=== PATIENT | female | born 2005 | race Caucasian/White ===

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

== ENCOUNTER 2024-01-12 12:32 | Emergency (ER) | payer OTHER, SELFPAY ==
[2024-01-12 12:32] VITALS: BP 117/88; PULSE 88; RESP 16; TEMP 36.6; O2SAT 100
--- NOTE | 2024-01-12 13:06 | ED.GENADULT ---
HPI - General Adult General Chief complaint: Unspecified Stated complaint: work note Time Seen by Provider: 01/12/24 13:06 Source: patient and family Mode of arrival: ambulatory Limitations: no limitations History of Present Illness HPI narrative: this is a 18-year-old female that works for [employer] that had a work related injury causing pain in her left shoulder approximately 3 to 4 days ago currently her left shoulder is relieved of pain and symptoms have resolved has good range of motion no point tenderness no numbness or tingling no other injuries noted. Onset (ago): day(s) Location: upper extremity Radiation: non-radiation Severity: mild Related Data Home Medications Medication Instructions Recorded Confirmed No Home Medications 09/13/20 01/12/24 Allergies Allergy/AdvReac Type Severity Reaction Status Date / Time No Known Allergies Allergy Verified 01/12/24 12:56 Review of Systems Review of Systems: All systems reviewed & are unremarkable except as noted in HPI and below PMFSH Past Medical History Medical History Patient denies medical problems Exam Const: General: cooperative, healthy appearing, comfortable, no acute distress and well developed Neck: Neck: normal visual inspection, full ROM, no lymphadenopathy and no meningeal signs Chest: Chest palpation & inspection: normal inspection of the chest and normal palpation of entire chest wall Resp: Effort & Inspection: normal respiratory effort and able to speak in complete sentences Cardio: Jugular venous distension: no JVD Palpation: normal PMI Rate: regular rate Rhythm: regular rhythm Skin: General skin exam: normal color and no rashes or lesions noted Neuro: General: oriented to person, oriented to place, oriented to time and patient oriented x3 Extrem: General: normal to inspection, full ROM and capillary refill normal Course Course Emergency Course: Exam showed no acute abnormalities left shoulder discomfort an injury has resolved advised patient to go back to work and will give a note to that effect. Vital Signs Vital signs: Vital Signs Temperature 36.6 C 01/12/24 12:32 Pulse Rate 88 01/12/24 12:32 Respiratory Rate 16 01/12/24 12:32 Blood Pressure 117/88 01/12/24 12:32 Pulse Oximetry 100 01/12/24 12:32 Temperature 36.6 C 01/12/24 12:32 Pulse Rate 88 01/12/24 12:32 Respiratory Rate 16 01/12/24 12:32 Blood Pressure 117/88 01/12/24 12:32 Pulse Oximetry 100 01/12/24 12:32 Medical Decision Making Vital Signs Vital Signs: Vital Signs Temperature 36.6 C 01/12/24 12:32 Pulse Rate 88 01/12/24 12:32 Respiratory Rate 16 01/12/24 12:32 Blood Pressure 117/88 01/12/24 12:32 Pulse Oximetry 100 01/12/24 12:32 Temperature 36.6 C 01/12/24 12:32 Pulse Rate 88 01/12/24 12:32 Respiratory Rate 16 01/12/24 12:32 Blood Pressure 117/88 01/12/24 12:32 Pulse Oximetry 100 01/12/24 12:32 Critical Care Time Critical Care Time Critical Care Time: No Discharge Plan Discharge Clinical Impression: Work related injury, Left shoulder strain Patient Disposition: Home, Self-Care Condition: Stable Instructions: Antibiotic Form, Rotator Cuff Injury (ED) Additional Instructions: advised patient able to go back to work and for workman's comp related injury follow up with primary are with physicians at [facility] Prescriptions: No Action No Home Medications Follow-up/Referrals: Kelly,MD Nestor [Primary Care Provider] - Stand Alone Forms: Work/School Release IP Time of Disposition: 13:11
[2024-01-12 13:35] VITALS: BP 117/88; PULSE 88; RESP 16; TEMP 36.6; O2SAT 100
== END 2024-01-12 13:35 | disposition home or self-care (01) ==
LOC: CHSED 13:15
PROVIDERS: Emergency Provider Emergency Medicine; PCP Family Medicine
DX: S46.912A Strain of unspecified muscle, fascia and tendon at shoulder and upper arm level, left arm, initial encounter (principal); X58.XXXA Exposure to other specified factors, initial encounter; Y99.0 Civilian activity done for income or pay
CPT/HCPCS: 99281

== ENCOUNTER 2024-05-27 17:09 | Emergency (ER) | payer OTHER, SELFPAY ==
--- NOTE | ~2024-05-27 | XR_ITS ---
HISTORY: FALL COMPARISON: None TECHNIQUE: 3 views of the right ribs were performed along with a frontal view of the chest FINDINGS: No acute displaced fracture is appreciated. Bone mineralization is age-appropriate. The cardiothymic silhouette is unremarkable. The lungs are clear. IMPRESSION: No acute displaced right-sided rib fracture. The lungs are clear. Reviewed, dictated and finalized at location A.
[2024-05-27 17:09] VITALS: BP 130/89; PULSE 96; RESP 16; TEMP 36.2; O2SAT 97
--- NOTE | 2024-05-27 17:31 | ED.BACK ---
HPI - Back Pain/Injury General Chief Complaint: Back Pain/Injury Stated Complaint: BACK PAIN Time Seen by Provider: 05/27/24 17:25 Source: patient and family Mode of arrival: ambulatory Limitations: no limitations History of Present Illness HPI Narrative: 18 YEARS OLD WHITE FEMALE WAS WALKING INSIDE HER HOUSE SOMEHOW LOST HER BALANCE AND FELL BACKWARD LANDED ON HER BACK. SHE DENIES OTHER INJURIES. Related Data Home Medications ?Medication ?Instructions ?Recorded ?Confirmed ?Last Taken ?Type No Home Medications 09/13/20 01/12/24 Unknown History Allergies Allergy/AdvReac Type Severity Reaction Status Date / Time No Known Allergies Allergy Verified 05/27/24 17:16 Review of Systems Review of Systems: All systems reviewed & are unremarkable except as noted in HPI and below PMFSH Past Medical History Medical History Patient denies medical problems Exam Narrative: GENERAL APPEARANCE: WELL-DEVELOPED, WELL-NOURISHED SKIN: NORMAL COLOR HEAD: NORMOCEPHALIC, NONTRAUMATIC EYES: CLEAR CONJUNCTIVA ENT: OROPHARYNX NORMAL, EARS NORMAL, NOSE NORMAL NECK: SUPPLE, NONTENDER CHEST AND RESPIRATORY: AIRWAY PATENT, NO RESPIRATORY DISTRESS, NO ACCESSORY MUSCLE USE HEART: REGULAR RATE/RHYTHM ABDOMEN: SOFT, NONTENDER, NO ORGANOMEGALY, QUIET BOWEL SOUNDS VASCULAR: NORMAL PERIPHERAL PULSES, NORMAL CAPILLARY REFILL. MUSCULOSKELETAL: ABRASION AT THE LEFT SIDE OF THE RIBS POSTERIORLY, TENDERNESS AT THE RIGHT RIBS, NEUROLOGIC: ALERT AND ORIENTED ?3, LINING LAYER IS NORMAL TESTED, NO GROSS MOTOR DEFICIT Course Vital Signs Vital signs: Vital Signs Temperature 36.2 C L 05/27/24 17:09 Pulse Rate 96 05/27/24 17:09 Respiratory Rate 16 05/27/24 17:09 Blood Pressure 130/89 05/27/24 17:09 Pulse Oximetry 97 05/27/24 17:09 Oxygen Delivery Room Air 05/27/24 17:09 Temperature 36.2 C L 05/27/24 17:09 Pulse Rate 96 05/27/24 17:09 Respiratory Rate 16 05/27/24 17:09 Blood Pressure 130/89 05/27/24 17:09 Pulse Oximetry 97 05/27/24 17:09 Oxygen Delivery Room Air 05/27/24 17:09 MDM - Back Pain/Injury Imaging Data Radiologist's impression: RIGHT RIB X-RAY SHOWED NO ACUTE ABNORMALITIES Critical Care Time Critical Care Time Critical Care Time: No Discharge Plan Discharge Clinical Impression: Back contusion Patient Disposition: Home, Self-Care Condition: Stable Instructions: Back Pain (ED) Additional Instructions: RETURN IF SYMPTOMS ARE WORSENING , CALL YOUR FAMILY PHYSICIAN FOR APPOINTMENT, TAKE TYLENOL, IBUPROFEN NEEDED FOR ACHES AND PAIN, CONTINUE HOME MEDICATIONS. Patient Language: Solomon Islander Prescriptions: No Action No Home Medications Follow-up/Referrals: Kelly,MD Nestor [Primary Care Provider] -
--- OUTSIDE RECORDS SUMMARY | 2024-05-27 18:18 | XMS_ITS | Clinical Summary ---
Author Organization [facility] [employer] Address [address] [place] [address] Care Team Providers Care Aitchbone Breaker Name Role Phone Taz Boyd MD Primary Care Provider [phone] Source Comments [facility],non-owned Affiliates and Associated Physician Practices is amultiple site organization consisting of ambulatory clinics and hospital sitesin [place], [place], [place] and [place]. This disclosure is being madepursuant to the Care Everywhere program and may not contain all information available regarding this patient. Last updated 17.[facility] [employer] Allergies No known active allergies Medications Be aware that medications may not be up to date on this document. Always verify current medications with the patient. 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 Social History Tobacco Use Types Packs/Day Years Used Date Smoking Tobacco: Never Assessed Sex and Gender Information Value Date Recorded Sex Assigned at Not on file Gender Identity Not on file Sexual Orientation Not on file Plan of Treatment Health Maintenance Due Date Last Done Comments HIV SCREENING 08/31/2019 HPV VACCINE (1 - 3-dose series) 08/31/2019 CHLAMYDIA/GONORRHEA SCREENING 2020 MENINGOCOCCAL (Group B) VACC INE (1 of 2 - Standard) 2020 HEPATITIS C SCREENING 08/26/2022 DTAP/TDAP/TD VACCINES (1 - Tdap) 08/31/2023 HEPATITIS B VACCINE (1 of 3 - 19+ 3-dose series) 08/31/2023 COVID-19 VACCINE ( - 2023-2 5 season) 2023 INFLUENZA VACCINE (#1) 2023 DEPRESSION SCREENING 03/19/2024 ZOSTER VACCINE (1 of 2) 2054 HIB VACCINE Aged Out No longer eligi ble based on patient's age to complete this topic MENINGOCOCCAL VACCINE Aged Out No vida bradley eligible based on patient's age to complete this topic PNEUMOCOCCAL VACCINE Aged Out No long er eligible based on patient's age to complete this topic Care Teams Aitchbone Breaker Relationship Specialty Start Date End Date Taz Boyd MD [address] [place] [phone] PCP - General Family Medicine 12/20/11
--- OUTSIDE RECORDS SUMMARY | 2024-05-27 18:18 | XMS_ITS | Patient Health Summary ---
Author Organization [facility] Address [address] [place] [address] Care Team Providers Care Residential Program Worker Name Role Phone Taz Boyd MD Primary Care Provider Note from [facility],non-owned Affiliates and Associated Physician Practices is amultiple site organization consisting of ambulatory clinics and hospital sitesin [place], [place], [place] and [place]. This disclosure is being madepursuant to the Care Everywhere program and may not contain all information available regarding this patient. Last updated 17.[facility] [employer] Allergies No known active allergies Medications Be [...] on file Sexual Orientation Not on file Care Teams Residential Program Worker Relationship Specialty Start Date End Date Taz Boyd MD [address] [place] [phone] PCP - General Family Medicine 12/20/11
--- OUTSIDE RECORDS SUMMARY | 2024-05-27 18:18 | XMS_ITS | Referral Summary ---
Author Organization [facility] Address [address] [place] [address] Care Team Providers Care Impregnating Tank Operator Name Role Phone Taz Boyd MD Primary Care Provider Source Comments [facility],non-owned Affiliates and Associated Physician Practices is amultiple site organization consisting of ambulatory clinics and hospital sitesin [place], [place], [place] and [place]. This disclosure is being madepursuant to the Care Everywhere program and may not contain all information available regarding this patient. Last updated 17.[facility] [employer] Allergies No known active allergies Medications Be [...] Orientation Not on file Plan of Treatment Not on file Care Teams Impregnating Tank Operator Relationship Specialty Start Date End Date Taz Boyd MD [address] [place] [phone] PCP - General Family Medicine 12/20/11
== END 2024-05-27 18:10 | disposition home or self-care (01) ==
LOC: CHSED 18:09
PROVIDERS: Emergency Provider Emergency Medicine; PCP Family Medicine
DX: S30.0XXA Contusion of lower back and pelvis, initial encounter (principal); S20.312A Abrasion of left front wall of thorax, initial encounter; W19.XXXA Unspecified fall, initial encounter
CPT/HCPCS: 71101; 99283

== ENCOUNTER 2024-06-02 16:24 | Emergency (ER) | payer OTHER, SELFPAY ==
--- NOTE | ~2024-06-02 | XR_ITS ---
XR hand RT min 3V Ordering provider: Altaf Thompson MD History: . foreign body, punched window, lac 2nd-4th phalanges . Comparison: None. FINDINGS: BONES: No acute fracture or dislocation. JOINT SPACES: Normal. SOFT TISSUES: Normal. IMPRESSION: No acute osseous abnormality right hand. Reviewed, dictated and finalized at location A.
[2024-06-02 16:24] VITALS: BP 138/95; PULSE 95; RESP 20; TEMP 36.6; O2SAT 96
--- NOTE | 2024-06-02 16:42 | ED_ITS ---
HPI - Wound/Laceration General Chief Complaint: Wound/Laceration Stated Complaint: laceration Time Seen by Provider: 06/02/24 16:34 Source: patient Mode of arrival: ambulatory Limitations: no limitations History of Present Illness HPI narrative: 89 years old white female came to the ED by private car from home with laceration of the right hand, broken glass prior to arrival to the ED. she denies other injuries. Related Data Allergies Allergy/AdvReac Type Severity Reaction Status Date / Time No Known Allergies Allergy Verified 06/02/24 16:35 Review of Systems Review of Systems: All systems reviewed & are unremarkable except as noted in HPI and below PMFSH Past Medical History Medical History Patient denies medical problems Exam Narrative: General appearance: Well-developed, well-nourished Skin: Normal color Head: Normocephalic, nontraumatic Eyes: Clear conjunctiva ENT: Oropharynx normal, ears normal, nose normal Neck: Supple, nontender Chest and respiratory: Airway patent, no respiratory distress, no accessory muscle use Heart: Regular rate/rhythm Abdomen: Soft, nontender, no organomegaly, quiet bowel sounds Vascular: Normal peripheral pulses, normal capillary refill. Musculoskeletal: RIGHT INDEX SHOWING 2 CM SUBCUTANEOUS LACERATION DORSALLY OF THE 2ND PHALANX Neurologic: Alert and oriented ?3, M[employer] OFFICER is normal as tested, no gross motor deficit Course Vital Signs Vital signs: Vital Signs Temperature 36.6 C 06/02/24 16:24 Pulse Rate 95 06/02/24 16:24 Respiratory Rate 20 06/02/24 16:24 Blood Pressure 138/95 H 06/02/24 16:24 Pulse Oximetry 96 06/02/24 16:24 Oxygen Delivery Room Air 06/02/24 16:24 Temperature 36.6 C 06/02/24 16:24 Pulse Rate 95 06/02/24 16:24 Respiratory Rate 20 06/02/24 16:24 Blood Pressure 138/95 H 06/02/24 16:24 Pulse Oximetry 96 06/02/24 16:24 Oxygen Delivery Room Air 06/02/24 16:24 Procedures Laceration Laceration 1: Date: 06/02/24 Time: 18:00 Site: hand Side (If applicable): right Size (cm): 2 Description: irregular and clean Depth: simple, single layer Local Anesthetic: lidocaine 1% Amount of anesthesia used (mL): 5 Pre-repair: wound explored and irrigated ====== Skin Level ====== Skin layer closed with: nylon Size (cm): 6-0 Number of sutures: 5 Technique: simple, interrupted ====== Subcutaneous Layer ====== ====== Muscle Layer ====== ====== Tendon Layer ====== Discharge Plan Discharge Clinical Impression: Finger laceration Patient Disposition: Home, Self-Care Condition: Stable Instructions: Antibiotic Form, Laceration (ED) Additional Instructions: RETURN IF SYMPTOMS ARE WORSENING , CALL YOUR FAMILY PHYSICIAN FOR APPOINTMENT, TAKE TYLENOL NEEDED FOR ACHES AND PAIN, CONTINUE HOME MEDICATIONS., KEEP HAND ELEVATED, TOPICAL NEOSPORIN, REMOVE SUTURES IN 8 DAYS Patient Language: Uzbek Prescriptions: New cephalexin 500 mg capsule 500 mg PO Q6H 7 Days Qty: 28 0RF Follow-up/Referrals: Kelly,MD Nestor [Primary Care Provider] -
--- NOTE | 2024-06-02 16:42 | PC.NURSE ---
wound soaked in Betadine and sterile water.
[2024-06-02] MEDS: LIDOCAINE, EPINEPHRINE, TETRACAINE VISCOUS SOLN 3 ML TOPICAL (16:55)
[2024-06-02] MEDS: TETANUS,DIPHTHERIA,AC PERTUSSIS ADULT 0.5 ML (ADACEL) IM (16:55)
[2024-06-02] MEDS: LIDOCAINE 1% LOCAL INJ 10 ML VIAL 5 ML INFILTRATE (17:49)
[2024-06-02 18:07] VITALS: BP 151/97; PULSE 79; RESP 18; O2SAT 98
--- OUTSIDE RECORDS SUMMARY | 2024-06-02 18:46 | XMS_ITS | Patient Health Summary ---
Author Organization [facility] Address [address] [place] [address] Care Team Providers Care Global Transportation Manager Name Role Phone Taz Boyd MD Primary Care Provider [phone] Note from [facility],non-owned Affiliates and Associated Physician Practices is amultiple site organization consisting of ambulatory clinics and hospital sitesin [place], [place], [place] and [place]. This disclosure is being madepursuant to the Care Everywhere program and may not contain all information available regarding this patient. Last updated 17.[facility] [employer] Allergies No known active allergies Medications Be [...] Sexual Orientation Not on file Care Teams Global Transportation Manager Relationship Specialty Start Date End Date Taz Boyd MD [address] [place] [phone] PCP - General Family Medicine 12/20/11
--- OUTSIDE RECORDS SUMMARY | 2024-06-02 18:46 | XMS_ITS | Clinical Summary ---
Author Organization [facility] [employer] Address [address] [place] [address] Care Team Providers Care Grain Broker And Market Operator Name Role Phone Taz Boyd MD Primary Care Provider [phone] Source Comments [facility],non-owned Affiliates and Associated Physician Practices is amultiple site organization consisting of ambulatory clinics and hospital sitesin [place], [place], [place] and [place]. This disclosure is being madepursuant to the Care Everywhere program and may not contain all information available regarding this patient. Last updated 17.[facility] [employer] Allergies No known active allergies Medications Be [...] SCREENING 2020 MENINGOCOCCAL (Group B) VACC INE SHARED DECISION-MAKING (1 of 2 - Standard) 2020 HEPATITIS [...] patient's age to complete this topic MENINGOCOCCAL GROUPS A/C/Y/W VACCINE Aged Out No longer eligible b ased on patient's age to complete this topic PNEUMOCOCCAL VACCINE Aged Out No long er eligible based on patient's age to complete this topic Care Teams Grain Broker And Market Operator Relationship Specialty Start Date End Date Taz Boyd MD [address] [place] [phone] PCP - General Family Medicine 12/20/11
--- OUTSIDE RECORDS SUMMARY | 2024-06-02 18:46 | XMS_ITS | Referral Summary ---
Author Organization [facility] Address [address] [place] [address] Care Team Providers Care District Or District Office Director Name Role Phone Taz Boyd MD Primary Care Provider [phone] Source Comments [facility] [place] [facility],non-owned Affiliates and Associated Physician Practices is amultiple site organization consisting of ambulatory clinics and hospital sitesin [place], [place], [place] and [place]. This disclosure is being madepursuant to the Care Everywhere program and may not contain all information available regarding this patient. Last updated 17.[facility] [employer] Allergies No known active allergies Medications Be [...] of Treatment Not on file Care Teams District Or District Office Director Relationship Specialty Start Date End Date Taz Boyd MD [address] [place] [phone] PCP - General Family Medicine 12/20/11
== END 2024-06-02 17:55 | disposition home or self-care (01) ==
PROVIDERS: Emergency Provider Emergency Medicine; PCP Family Medicine
DX: S61.411A Laceration without foreign body of right hand, initial encounter (principal); W25.XXXA Contact with sharp glass, initial encounter; Z23 Encounter for immunization
CPT/HCPCS: 12001; 73130; 90471; 90715; 99283; J2003